=== PATIENT | female | born 1970 | race African-American/Black ===

== ENCOUNTER → 2017-07-30 | Outpatient (CLI) | payer OTHER | LOC: LIGHT 09:37 | DX: Z01.89 Encounter for other specified special examinations (principal) ==

== ENCOUNTER → 2017-09-17 | Outpatient (CLI) | payer OTHER ==
[~2017-09-17] VITALS: Ht 172.7 cm; Wt 125.9 kg
[~2017-09-17] MED LIST: HCTZ 25MG TAB25 MG PO; INDERAL LA 60MG60 MG PO; MULTI-VITAMIN W1 TA1 PO; NORVASC 10MG10 MG PO; OMEGA-3 FISH1000 MG PO; PRAVACHOL10 MG PO; PROZAC60 MG PO; XANAX 0.5MG0.5 MG PO
[2017-09-17 15:23] VITALS: BP 140/86; PULSE 64
== END ==
LOC: LIGHT 09:59
DX: E66.01 Morbid (severe) obesity due to excess calories (principal); Z68.41 Body mass index [BMI] 40.0-44.9, adult; Z71.3 Dietary counseling and surveillance; I10 Essential (primary) hypertension
CPT/HCPCS: G0463

== ENCOUNTER → 2017-10-15 | Outpatient (CLI) | payer OTHER | LOC: LIGHT 14:55 | DX: Z01.89 Encounter for other specified special examinations (principal) ==

== ENCOUNTER → 2017-10-29 | Outpatient (CLI) | payer OTHER ==
[~2017-10-29] VITALS: Ht 172.7 cm; Wt 122.0 kg
[~2017-10-29] MED LIST changes: +GLUCOPHAGE500 MG/TAB PO
[2017-10-29 16:06] VITALS: BP 140/82; PULSE 84
== END ==
LOC: LIGHT 10-01 14:37
DX: E66.01 Morbid (severe) obesity due to excess calories (principal); Z68.41 Body mass index [BMI] 40.0-44.9, adult; Z71.3 Dietary counseling and surveillance; I10 Essential (primary) hypertension

== ENCOUNTER → 2017-11-26 | Outpatient (CLI) | payer OTHER ==
[~2017-11-26] VITALS: Ht 172.7 cm; Wt 124.3 kg
[2017-11-26 16:14] VITALS: BP 116/76; PULSE 76
== END ==
LOC: LIGHT
DX: E66.01 Morbid (severe) obesity due to excess calories (principal); Z68.41 Body mass index [BMI] 40.0-44.9, adult; Z71.3 Dietary counseling and surveillance; I10 Essential (primary) hypertension
CPT/HCPCS: G0463

== ENCOUNTER → 2018-01-21 | Outpatient (CLI) | payer OTHER ==
[~2018-01-21] VITALS: Ht 172.7 cm; Wt 124.5 kg
[~2018-01-21] MED LIST changes: +WELLBUTRIN XL150 MG PO
[2018-01-21 16:14] VITALS: BP 124/80; PULSE 76
== END ==
LOC: LIGHT 12-24 16:41
DX: E66.01 Morbid (severe) obesity due to excess calories (principal); Z68.41 Body mass index [BMI] 40.0-44.9, adult; Z71.3 Dietary counseling and surveillance; I10 Essential (primary) hypertension
CPT/HCPCS: G0463

== ENCOUNTER 2018-02-19 18:49 | Emergency (ER) | payer OTHER ==
[~2018-02-19] VITALS: Ht 172.7 cm; Wt 123.2 kg
[2018-02-19 18:53] VITALS: TEMP 98.3
[2018-02-19 19:21] LABS: BASO # 0.1 (0.0-0.2); BASO % 0.6 % (0.0-2.0); EOS # 0.1 (0.0-0.7); EOS % 1.2 % (0-4.0); GRAN # 5.2 (1.4-6.5); GRAN % 53.8 % (42.2-75.2); HEMATOCRIT 41.6 % (37.0-47.0); HEMOGLOBIN 14.3 g/dl (12.5-16.0); LYMPH # 3.6 (1.2-3.4); LYMPH % 36.9 % (20.0-51.0); MEAN CELL VOLUME 89 fl (80.0-100.0); MEAN CORPUSCULAR HEMOGLOBIN 31 pg (27.0-31.0); MEAN CORPUSCULAR HGB CONC 34 g/dl (33.0-37.0); MEAN PLATELET VOLUME 11.4 fl (7.4-10.4); MONO # 0.7 (0.1-0.6); MONO % 7.3 % (1.7-9.3); PLATELET COUNT 285 K/mm3 (130-400); RED BLOOD COUNT 4.66 M/mm3 (4.10-5.30); REDCELL DISTRIBUTION WIDTH-CV 13.7 % (11.5-14.5)
[2018-02-19 20:38] LABS: ANION GAP 10 mmol/L (7-16); BLOOD UREA NITROGEN 11 mg/dL (7-17); CALCIUM 9.3 mg/dL (8.4-10.2); CARBON DIOXIDE 30 mmol/L (22-30); CHLORIDE 101 mmol/L (98-107); CREATININE, serum 0.73 mg/dL (0.52-1.25); GLUCOSE 92 mg/dL (74-106); POTASSIUM 3.8 mmol/L (3.4-5.0); SODIUM 141 mmol/L (137-145)
[2018-02-19 20:52] LABS: TROPONIN-I < 0.012 ng/mL (0.000-0.034)
[2018-02-19 22:10] VITALS: BP 125/80; PULSE 86
== END 2018-02-19 22:11 | disposition home or self-care (01) ==
LOC: COL.ER 18:49
PROVIDERS: Emergency Medicine
DX: R07.89 Other chest pain (principal); I10 Essential (primary) hypertension; Z98.51 Tubal ligation status; Z90.89 Acquired absence of other organs; Z79.84 Long term (current) use of oral hypoglycemic drugs

== ENCOUNTER → 2018-03-04 | Outpatient (CLI) | payer OTHER | LOC: MC.RAD 11:40 | DX: Z12.31 Encounter for screening mammogram for malignant neoplasm of breast (principal) ==

== ENCOUNTER 2018-12-17 20:51 | Emergency (ER) | payer OTHER ==
[~2018-12-17] VITALS: Ht 170.2 cm; Wt 119.5 kg
[~2018-12-17 20:51] MED LIST changes: +PROZAC40 MG PO; -PROZAC60 MG PO
[2018-12-17 20:59] VITALS: BP 123/76; TEMP 98.8
[2018-12-17] MEDS ORDERED: FLEXERIL 1010 MG/TAB PO (21:40)
[2018-12-17] MEDS ORDERED: PREDNISONE20 MG PO (21:40)
[2018-12-17] MEDS ORDERED: NORCO 325 MG-51 TAB PO (21:40)
[2018-12-17] MEDS ORDERED: DESYREL 50MG50 MG PO (21:58)
[2018-12-17 23:25] VITALS: PULSE 78
== END 2018-12-17 23:25 | disposition home or self-care (01) ==
LOC: COL.ER 20:51
DX: M54.5 Low back pain (principal); I10 Essential (primary) hypertension; Z98.51 Tubal ligation status; Z90.89 Acquired absence of other organs; Z88.0 Allergy status to penicillin
CPT/HCPCS: J2060; J2270; J7512

== ENCOUNTER → 2019-09-01 | Outpatient (CLI) | payer OTHER ==
[~2019-09-01] MED LIST changes: +DESYREL 50MG50 MG PO; +FLEXERIL 1010 MG/TAB PO; +NORCO 325 MG-51 TAB PO; +PREDNISONE20 MG PO
== END ==
LOC: MC.RAD 14:38
DX: Z12.31 Encounter for screening mammogram for malignant neoplasm of breast (principal)

== ENCOUNTER 2020-02-12 22:33 | Emergency (ER) | payer OTHER ==
[~2020-02-12] VITALS: Ht 170.2 cm; Wt 115.9 kg
[2020-02-12] MEDS ORDERED: PREDNISONE20 MG PO (23:16)
[2020-02-12] MEDS ORDERED: FLEXERIL 1010 MG/TAB PO (23:16)
[2020-02-13 00:11] VITALS: BP 110/76; PULSE 60; TEMP 97.9
== END 2020-02-13 00:11 | disposition home or self-care (01) ==
LOC: COL.ER 22:33
DX: S33.5XXA Sprain of ligaments of lumbar spine, initial encounter (principal); F43.10 Post-traumatic stress disorder, unspecified; Z90.89 Acquired absence of other organs; X58.XXXA Exposure to other specified factors, initial encounter
CPT/HCPCS: J1885; J2360; J7512

== ENCOUNTER 2021-01-15 08:41 | Emergency (ER) | payer OTHER ==
[~2021-01-15] VITALS: Ht 170.2 cm; Wt 122.7 kg
[2021-01-15 08:48] VITALS: BP 127/86; PULSE 87; TEMP 97
[2021-01-15] MEDS ORDERED: MEDROL 4MG DOSPA4 MG PO (09:01)
[2021-01-15] MEDS ORDERED: LIDODERM 5% PATC1 EA TP (09:01)
[2021-01-15] MEDS ORDERED: FLEXERIL5 MG PO (09:01)
== END 2021-01-15 09:20 | disposition home or self-care (01) ==
LOC: COL.ER 08:41
DX: M54.5 Low back pain (principal); Z88.0 Allergy status to penicillin; Z88.1 Allergy status to other antibiotic agents; Z88.5 Allergy status to narcotic agent
CPT/HCPCS: J1885

== ENCOUNTER 2021-01-15 20:02 | Emergency (ER) | payer OTHER ==
[~2021-01-15] VITALS: Ht 170.2 cm; Wt 122.7 kg
[~2021-01-15 20:02] MED LIST changes: +FLEXERIL5 MG PO; +LIDODERM 5% PATC1 EA TP; +MEDROL 4MG DOSPA4 MG PO
[2021-01-15 20:10] VITALS: TEMP 98
[2021-01-15 21:35] VITALS: BP 128/77; PULSE 71
== END 2021-01-15 21:30 | disposition home or self-care (01) ==
LOC: COL.ER 20:02
DX: M54.5 Low back pain (principal); Z88.0 Allergy status to penicillin; Z88.1 Allergy status to other antibiotic agents; Z88.5 Allergy status to narcotic agent
CPT/HCPCS: J2270; J3360

== ENCOUNTER 2022-01-20 15:38 | Emergency (ER) | payer OTHER ==
[~2022-01-20] VITALS: Ht 170.2 cm; Wt 122.7 kg
[2022-01-20 15:58] VITALS: BP 124/71; PULSE 56; TEMP 98.2
[2022-01-20] MEDS ORDERED: NORCO 325 MG-51 TAB PO (16:18)
[2022-01-20] MEDS ORDERED: ROBAXIN 75750 MG/TAB PO (16:18)
== END 2022-01-20 16:39 | disposition home or self-care (01) ==
LOC: COL.ER 15:38
DX: M25.512 Pain in left shoulder (principal)

== ENCOUNTER 2024-05-01 16:49 | Emergency (ER) | payer OTHER ==
[~2024-05-01] VITALS: Ht 170.2 cm; Wt 121.8 kg
[~2024-05-01 16:49] MED LIST changes: +ROBAXIN 75750 MG/TAB PO
[2024-05-01 16:53] VITALS: BP 134/82; PULSE 67; TEMP 98
[2024-05-01] MEDS ORDERED: Ketorolac 30 MG/ML VIAL IM ONE (17:15)
[2024-05-01] MEDS ORDERED: Lidocaine 4% Topical Patch TP ONE (17:15)
[2024-05-01] MEDS ORDERED: Cyclobenzaprine 10 MG TAB PO ONE (17:15)
[2024-05-01] MEDS ORDERED: NAPROSYN500 MG PO (17:22)
[2024-05-01] MEDS ORDERED: LIDODERM 5% PATC1 EA TP (17:22)
[2024-05-01] MEDS ORDERED: FLEXERIL 1010 MG/TAB PO (17:22)
== END 2024-05-01 18:26 | disposition home or self-care (01) ==
LOC: COL.ER 16:49
DX: M62.830 Muscle spasm of back (principal)
CPT/HCPCS: J1885

== ENCOUNTER 2024-05-07 05:25 | Emergency (ER) | payer OTHER ==
[~2024-05-07] VITALS: Ht 170.2 cm; Wt 121.8 kg
[~2024-05-07 05:25] MED LIST changes: +NAPROSYN500 MG PO
[2024-05-07 05:36] VITALS: BP 149/92; PULSE 74; TEMP 98.1
[2024-05-07] MEDS ORDERED: predniSONE 20 MG TAB PO ONE (06:30)
[2024-05-07] MEDS ORDERED: PREDNISONE20 MG PO (06:30)
== END 2024-05-07 06:44 | disposition home or self-care (01) ==
LOC: COL.ER 05:25
DX: M62.830 Muscle spasm of back (principal)
CPT/HCPCS: J7512

== ENCOUNTER → 2024-07-06 | Outpatient (CLI) | payer SELFPAY | LOC: WSPT 12:07 | DX: M54.12 Radiculopathy, cervical region (principal); M48.02 Spinal stenosis, cervical region ==

== ENCOUNTER 2024-07-13 13:30 | Outpatient (RCR) | payer OTHER | END 2024-07-16 | disposition home or self-care (01) | LOC: WSPT | DX: M54.12 Radiculopathy, cervical region (principal); M48.02 Spinal stenosis, cervical region ==